=== PATIENT | female | born 1995 | race Caucasian/White ===

== ENCOUNTER 2016-08-15 02:07 | Emergency (ER) | payer BC ==
[2016-08-15 02:15] VITALS: RESP 18
[2016-08-15] MEDS ORDERED: NS 1,000 ML IV ONE (02:46)
[2016-08-15] MEDS ORDERED: PHENAZOPYRIDINE HCL 200 MG TAB PO ONE (02:46)
[2016-08-15 02:47] LABS: COLOR YELLOW; LEUKOCYTE ESTERASE,URINE 3+ (NEGATIVE); NITRITE,URINE NEGATIVE (NEGATIVE)
--- NOTE | 2016-08-15 02:49 | EDPHY ---
H & P Time Seen by Provider: 08/15/16 02:25 HPI/ROS: HPI Burning with urination, suprapubic pain, urethral irritation. 20-year-old female by private vehicle. She reports onset of burning with urination, frequency, suprapubic discomfort since 9:00 p.m.. She took 1 Percocet and some ibuprofen. And had some relief but is still uncomfortable. She has had urinary tract infections in the past. She also had chlamydia when she was 15. She reports that she has not had sexual in 6 months. She reports she did have sexual intercourse this last Sunday. No vaginal bleeding. No vaginal discharge. She has had some nausea but no vomiting. ROS: Constitutional: No fever, no chills. No weakness. Eyes: No discharge. No changes in vision. ENT: No sore throat. No nasal congestion or rhinorrhea. Respiratory: No cough. No shortness of breath. Cardiac: No chest pain, no palpitations. Gastrointestinal: No abdominal pain, no vomiting, no diarrhea. As above. Genitourinary: No hematuria. As above. Musculoskeletal: No back pain. No neck pain. No myalgias or arthralgias. Skin: No rashes. Neurological: No headache. No focal weakness or altered sensation. Past medical history: Yeast infections. ADD. Depression, asthma. As above. Social history: Physical Exam: General Appearance: Alert, no distress. This patient is responding to questions appropriately and in full sentences. This patient appears well- hydrated and well-nourished. Eyes: Pupils equal and round no pallor or injection. No lid edema, erythema or injection. ENT, Mouth: Mucous membranes are moist. The pharyngeal tissues are unremarkable. No edema or swelling. No asymmetry suggestive of abscess. No erythema or exudates. Respiratory: There are no retractions, lungs are clear to auscultation with good air movement bilaterally. Cardiovascular: Regular rate and rhythm. Mild tachycardia. No murmur. Gastrointestinal: Abdomen is soft with suprapubic tenderness on palpation, no masses, bowel sounds normal. No focal tenderness at McBurney's point. No Warren sign. Neurological: Motor sensory function is grossly intact. Cranial nerves are normal. Gait is normal. Skin: Warm and dry, no rashes. Musculoskeletal: No CVA tenderness on palpation. Extremities are symmetrical. All joints range without pain or impingement. Psychiatric: No agitation. No depression. Database: EKG: Imaging: Procedures: Emergency department course: IV placed. She was started on IV normal saline with 1 L to be given over the next hour. She was given 4 mg of IV Zofran. Urine specimen obtained. Vital signs reviewed. Afebrile. Normal blood pressure. Tachycardia. 3:00 a.m., results of urinalysis discussed with the patient. Medication allergies reviewed. She was given 1 g of IV Rocephin. 3:30 a.m., patient has received 1 g of IV Rocephin. She is feeling better. She feels comfortable going home and I feel she is safe for discharge. Plan; prescription for Keflex to be started later this morning. Pyridium will also be prescribed. She is to follow up with her primary care physician for re- evaluation tomorrow. Return to emergency department precautions reviewed with her. All of her questions were answered. She was discharged in good condition. Differential Diagnosis: The differential diagnosis on this patient includes but is not limited to urinary tract infection, cystitis. STD unlikely. This represents a partial list of diagnoses considered. These considerations are based on history, physical exam, past history, reassessment and diagnostic testing. Constitutional: Initial Vital Signs Temperature (C) 36.6 C 08/15/16 02:11 Heart Rate 121 H 08/15/16 02:11 Respiratory Rate 18 08/15/16 02:11 Blood Pressure 119/86 H 08/15/16 02:11 O2 Sat (%) 94 08/15/16 02:11 Allergies/Adverse Reactions: No Known Allergies Allergy (Unverified 08/15/16 02:15) Home Medications: Medication Instructions Recorded Adderall 20 mg (*) 08/15/16 Cephalexin [Keflex (*)] 500 mg PO Q6 5 Days 08/15/16 Effexor 08/15/16 Lutera-28 Tablet 08/15/16 Phenazopyridine HCl [Pyridium] 200 mg PO TID #10 tab 08/15/16 Medical Decision Making - Data Points Laboratory Results: 08/15/16 08/15/16 08/15/16 02:15 02:15 02:15 Urine Color YELLOW Urine Appearance MODERATELY TURBID Urine pH 6.0 (5.0-7.5) Ur Specific [place] 1.011 (1.002-1.030) Urine Protein 2+ H (NEGATIVE) Urine Ketones TRACE H (NEGATIVE) Urine Blood 2+ H (NEGATIVE) Urine Nitrate NEGATIVE (NEGATIVE) Urine Bilirubin NEGATIVE (NEGATIVE) Urine Urobilinogen NEGATIVE EU EU (0.2-1.0) Ur Leukocyte Esterase 3+ H (NEGATIVE) Urine RBC 50-182 /hpf H /hpf (0-3) Urine WBC 50-182 /hpf H /hpf (0-3) Ur Epithelial Cells 1+ /lpf /lpf (NONE-1+) Urine Bacteria 1+ /hpf H /hpf (NONE SEEN) Urine Mucus TRACE /lpf /lpf (NONE-1+) Urine Glucose NEGATIVE (NEGATIVE) Urine Test NEGATIVE C.trachomatis RNA (TMA) Pending N.gonorrhoeae RNA (TMA) Pending Medications Given: Discontinued Medications Sodium Chloride (Ns) 1,000 mls @ 0 mls/hr IV ONCE ONE PRN Reason: Wide Open Stop: 08/15/16 02:47 Last Admin: 08/15/16 02:59 Dose: 1,000 mls Ceftriaxone Sodium/Dextrose (Rocephin 1 Gm (Premix)) 50 mls @ 100 mls/hr IV EDNOW ONE PRN Reason: Protocol Stop: 08/15/16 03:28 Last Admin: 08/15/16 03:06 Dose: 50 mls Ondansetron HCl (Zofran) 4 mg IVP EDNOW ONE Stop: 08/15/16 02:57 Last Admin: 08/15/16 03:00 Dose: 4 mg Ondansetron HCl (Zofran) 4 mg IVP EDNOW ONE Stop: 08/15/16 03:00 Last Admin: 08/15/16 03:00 Dose: Not Given Phenazopyridine HCl (Pyridium) 200 mg PO EDNOW ONE Stop: 08/15/16 02:47 Last Admin: 08/15/16 03:00 Dose: 200 mg Departure - Departure Disposition: Home, Routine, Self-Care Clinical Impression: Urinary tract infection Condition: Good Instructions: Urinary Tract Infection in Women (ED) Additional Instructions: Read and follow provided instructions. Follow-up with your primary care physician at the [facility] tomorrow for re-evaluation Take medication as prescribed through entire course of treatment. Return to the emergency department for worsening symptoms, back pain, vomiting, high fever or other serious concerns. Referrals: [facility] [Other] - As per Instructions Prescriptions: Cephalexin [Keflex (*)] 500 mg PO Q6 5 Days Phenazopyridine HCl [Pyridium] 200 mg PO TID #10 tab
[2016-08-15 02:52] LABS: BACTERIA 1+ /hpf (NONE SEEN); MUCUS TRACE /lpf (NONE-1+); RBC,URINE 50-182 /hpf (0-3); WBC,URINE 50-182 /hpf (0-3)
[2016-08-15] MEDS ORDERED: ONDANSETRON 4 MG/2 ML VIAL ONE (02:52)
[2016-08-15] MEDS ORDERED: ONDANSETRON 4 MG/2 ML VIAL IVP ONE ×2 (02:56→02:59)
[2016-08-15 03:56] VITALS: BP 130/78; PULSE 106; TEMP 98.2; O2SAT 96
[2016-08-15 13:17] LABS: CHLAMYDIA AMPLIFICATION GENPRB NEGATIVE (NEGATIVE)
== END 2016-08-15 03:56 | disposition home or self-care (01) ==
DX: N39.0 Urinary tract infection, site not specified (principal); J45.909 Unspecified asthma, uncomplicated; B96.20 Unspecified Escherichia coli [E. coli] as the cause of diseases classified elsewhere
CPT/HCPCS: 96374; J0696; J2405